=== PATIENT | female | born 1965 | race Caucasian/White ===

== ENCOUNTER → 2021-06-01 09:06 | Outpatient (CLI) | payer MEDICARE, MEDICAID, SELFPAY ==
[2021-06-01 09:33] VITALS: BP 98/57; PULSE 115; RESP 16; TEMP 37.2; O2SAT 99; BMI 22.4
[2021-06-01] MEDS: Acetaminophen 325 MG Tablet 650 MG PO (09:43)
[2021-06-01] MEDS: 0.9% NaCl VAD Flush IV ×2 (10:00→12:19)
[2021-06-01 10:30] VITALS: BP 87/52; PULSE 120; RESP 16; TEMP 37.2; O2SAT 99
[2021-06-01 11:30] VITALS: BP 105/67; PULSE 109; RESP 16; TEMP 36.9; O2SAT 100
[2021-06-01 12:17] VITALS: BP 99/66; PULSE 114; RESP 16; TEMP 36.7; O2SAT 99
== END ==
PROVIDERS: Referring Provider Internal Medicine Hematology & Oncology; Visit Provider Internal Medicine Hematology & Oncology
DX: D64.9 Anemia, unspecified (principal)
CPT/HCPCS: 36430; 86850; 86900; 86901; 86920; 86922; J7040; P9016; A4216

== ENCOUNTER 2021-07-07 15:50 | Observation (INO) | payer MEDICARE, MEDICAID, SELFPAY ==
[2021-07-07] VITALS (11 sets, daily range): BP systolic 82–101; BP diastolic 55–70; PULSE 83–136; RESP 18–28; TEMP 36.5–38.3; O2SAT 96; BMI 22.1; BMI 21.8
--- NOTE | 2021-07-07 16:41 | EDS_ITS ---
HPI History of Present Illness Chief Complaint: Fever Informant: patient Onset/Context/Timing Onset: Today Narrative Narrative: Patient presents with fever and not feeling well. She is currently on chemotherapy for history of colon cancer with liver mets. Her last chemotherapy treatment was 2 days ago. She states today she has just not felt well. She went up to the cancer center to have one of her medications discontinued and they told her she did not look well and they noted a temperature of 102. Patient denies cough or shortness of breath. No vomiting or diarrhea. She has not taken anything for fever today. [facility] Medical History Colon cancer Liver metastases Home Medications amoxicillin-pot clavulanate 1 tab PO BID 06/01/21 [History Last Taken Unknown] baclofen 5 mg PO TID 06/01/21 [History Last Taken Unknown] diclofenac sodium 75 mg PO BID 06/01/21 [History Last Taken Unknown] duloxetine 60 mg PO DAILY 06/01/21 [History Last Taken Unknown] fexofenadine-pseudoephedrine 1 tab PO DAILY PRN 06/01/21 [History Last Taken Unknown] gabapentin 300 mg PO TID 06/01/21 [History Last Taken Unknown] ibuprofen 600 mg PO Q6H PRN 06/01/21 [History Last Taken Unknown] loperamide 2 mg PO Q4H PRN 06/01/21 [History Last Taken Unknown] methocarbamol 750 mg PO TID 06/01/21 [History Last Taken Unknown] omeprazole 40 mg PO DAILY 06/01/21 [History Last Taken Unknown] oxycodone 5 - 10 mg PO Q8H PRN 06/01/21 [History Last Taken Unknown] promethazine 25 mg PO Q6H PRN 06/01/21 [History Last Taken Unknown] pyridoxine (vitamin B6) 100 mg PO DAILY 06/01/21 [History Last Taken Unknown] tramadol 50 mg PO Q6H PRN 06/01/21 [History Last Taken Unknown] Allergy/AdvReac Type Severity Reaction Status Date / Time No Known Allergies Allergy Verified 07/07/21 15:51 Social History Smoking Status: Unknown if ever smoked ROS ROS ED Constitutional Constitutional ED: Reports fever(s) Eyes Eyes: Denies blurry vision or change in vision ENT ENT ED: Denies rhinorrhea or sore throat Cardiovascular Cardiovascular: Denies chest pain or palpitations Respiratory/Chest Respiratory/Chest: Denies cough or dyspnea Gastrointestinal Gastrointestinal: Denies abdominal pain, diarrhea, nausea or vomiting Genitourinary Genitourinary ED: Denies dysuria Musculoskeletal Musculoskeletal: Reports myalgias Integumentary Denies rash Neurologic Neurologic: Reports weakness; Denies headache(s) Psychiatric Psychiatric: Denies anxiety or depression Allergic/Immunologic Allergic/Immunologic ED: Denies urticaria EXAM Physical Exam Const Vital Signs: 07/07/21 15:51 07/07/21 17:07 07/07/21 18:05 Temperature 100.7 F H 101 F H Temperature Source Temporal Temporal Pulse Rate 136 H 123 H 109 H Respiratory Rate 18 23 H 28 H Blood Pressure 82/55 L 101/68 89/62 L Blood Pressure Mean 64 79 71 Pulse Ox 96 96 Oxygen Delivery Method Room Air Room Air 07/07/21 18:18 07/07/21 18:19 Temperature 99.7 F H Temperature Source Temporal Pulse Rate 112 H Respiratory Rate 18 Blood Pressure 83/58 L 97/62 Blood Pressure Mean 66 73 Pulse Ox Oxygen Delivery Method Room Air Positive cachectic General Appearance ED: cachectic Nutritional Appearance: cachectic Eyes EOMs intact bilaterally Neck supple Chest Wall inspection of chest normal and palpation of chest normal Resp normal respiratory effort and clear to auscultation bilaterally Cardio Rate: tachycardic GI non-tender Palpation: soft Extremity Extremity Narrative: Port noted on the inner surface of the left upper arm. No surrounding erythema. Neuro oriented x3 Sensorium / Orientation: alert Psych mental status grossly normal Skin no rashes or lesions noted MDM MDM MDM Narrative Medical decision making narrative: Lab work, chest x-ray, cultures obtained. Patient given ibuprofen. Covid test ordered. Lab Data Attestation: I reviewed the patient's lab results. Labs: Laboratory Results - last 24 hr 07/07/21 07/07/21 07/07/21 16:15 16:15 16:15 WBC 13.0 H RBC 3.66 L Hgb 9.7 L Hct 32.2 L MCV 88.0 MCH 26.5 L MCHC 30.1 L RDW Std Deviation 60.2 H RDW Coeff of Dariusz 18.7 H Plt Count 452 H MPV 9.4 Immature Gran % (Auto) 0.800 Neut % (Auto) 90.3 H Lymph % (Auto) 8.3 L [place] % (Auto) 0.5 Eos % (Auto) 0.0 Baso % (Auto) 0.1 Absolute Neuts (auto) 11.8 H Absolute Lymphs (auto) 1.08 Nucleated RBC % 0 Atypical Lymphocytes 1+ Platelet Estimate SLT INC RBC Morphology N CHROM Hypochromasia 1+ Anisocytosis RARE Macrocytosis RARE PT 13.8 INR 1.1 APTT 28.1 Sodium 137 Potassium 3.4 L Chloride 97 L Carbon Dioxide 32.0 Anion Gap 8 BUN 7 Creatinine 0.72 Estim Creat Clear Calc 73.03 Est GFR (MDRD) Af Amer 108 Est GFR (MDRD) Non-Af 90 BUN/Creatinine Ratio 9.7 L Glucose 89 Lactic Acid Calcium 8.7 Total Bilirubin 0.50 Direct Bilirubin 0.14 AST 118 H ALT 23 Alkaline Phosphatase 285 H Total Protein 8.0 Albumin 1.9 L Globulin 6.1 H 07/07/21 16:15 WBC RBC Hgb Hct MCV MCH MCHC RDW Std Deviation RDW Coeff of Dariusz Plt Count MPV Immature Gran % (Auto) Neut % (Auto) Lymph % (Auto) [place] % (Auto) Eos % (Auto) Baso % (Auto) Absolute Neuts (auto) Absolute Lymphs (auto) Nucleated RBC % Atypical Lymphocytes Platelet Estimate RBC Morphology Hypochromasia Anisocytosis Macrocytosis PT INR APTT Sodium Potassium Chloride Carbon Dioxide Anion Gap BUN Creatinine Estim Creat Clear Calc Est GFR (MDRD) Af Amer Est GFR (MDRD) Non-Af BUN/Creatinine Ratio Glucose Lactic Acid 3.7 H* Calcium Total Bilirubin Direct Bilirubin AST ALT Alkaline Phosphatase Total Protein Albumin Globulin Rapid Covid: Positive Radiography Chest X-Ray - ED: 1 View, Read by ED Physician and Chronic Changes Diagnostic Testing: Clinical Impression(s) from Imaging Studies Chest X-Ray 07/07/21 17:08 IMPRESSION: 1. LEFT PIC catheter projects along the course the SVC approaching the venoatrial junction. 2. No pneumothorax. 3. Bibasilar patchy interstitial and alveolar infiltrate greater at the RIGHT base. 4. No congestive failure. Electronically Signed: Jason Dixon MD at 17:27 EST Tel , Service support , Treatment and Re-Evaluation Comments:: Patient's blood flasher initially low in the low 80s. She was initially given a 500 cc IV fluid bolus. Blood pressure remained low and lactic acid returned at 3.7. An additional 1 L IV fluid bolus is ordered. At this time her blood pressure is in the 90s over 60s. She states she typically runs in the 90s or 100s. Lab work does reveal a white count of 13.0. Chemistry studies largely unremarkable. Chest x-ray per radiology read does show bilateral infiltrates. With patient being on chemotherapy and early in her illness I do feel that she would benefit from Decadron and remdesivir. Decadron has been ordered here. I will speak with hospitalist regarding admission for further treatment. Discharge Plan Triage Chief Complaint: Fever Other Complaint: Fatigue ED Provider: Zahira Esteves Dx/Rx/DC Orders Clinical Impression: COVID-19, Hypotension Prescriptions: No Action loperamide 2 mg Tablet 2 mg PO Q4H PRN (Reason: bowels) RF: 0 tramadol 50 mg Tablet 50 mg PO Q6H PRN (Reason: Pain) RF: 0 methocarbamol 750 mg Tablet 750 mg PO TID RF: 0 promethazine 25 mg Tablet 25 mg PO Q6H PRN (Reason: Nausea) RF: 0 ibuprofen 200 mg Tablet 600 mg PO Q6H PRN (Reason: Pain) RF: 0 gabapentin 300 mg Capsule 300 mg PO TID RF: 0 omeprazole 20 mg Capsule,Delayed Release(Dr/Ec) 40 mg PO DAILY RF: 0 diclofenac sodium 75 mg Tablet,Delayed Release (Dr/Ec) 75 mg PO BID RF: 0 pyridoxine (vitamin B6) 100 mg Tablet 100 mg PO DAILY RF: 0 amoxicillin-pot clavulanate 875-125 mg Tablet 1 tab PO BID RF: 0 oxycodone 5 mg Tablet 5 - 10 mg PO Q8H PRN (Reason: Pain) RF: 0 duloxetine 60 mg Capsule,Delayed Release(Dr/Ec) 60 mg PO DAILY RF: 0 fexofenadine-pseudoephedrine 180-240 mg Tablet Extended Release 24 Hr 1 tab PO DAILY PRN (Reason: allergies) RF: 0 baclofen 5 mg Tablet 5 mg PO TID RF: 0 Primary Care Provider: Care Physician,No Primary Referrals: Care Physician,No Primary [Primary Care Provider] - Disposition Disposition: Acute Care Hospital [facility]
[2021-07-07] MEDS: Ibuprofen 200 MG Tablet 400 MG PO (16:49)
[2021-07-07 16:55] LABS: Absolute Lymphocyte Count 1.08 X10^3/uL (0.83-4.51); Absolute Neutrophil Count 11.8 X10^3/uL (2.0-7.7); Basophil# 0.01 X10^3/uL; Basophil% 0.1 % (0-1); Hematocrit 32.2 % (37-47); Hemoglobin 9.7 g/dL (12.0-15.0); Lymphocyte # 1.08 X10^3/ul (0.83-4.51); Lymphocyte % 8.3 % (19-41); Mean Corp Hgb Conc 30.1 g/dL (32-36); Mean Corpuscular Hgb 26.5 pg (27.0-32.0); Mean Platelet Vol. 9.4 fl (6.2-12.0); Monocyte# 0.07 X10^3/uL; Monocyte% 0.5 % (0-10); NRBC Flagged by Analyzer 0 % (0-5); Neutrophil # 11.76 X10^3/uL (2.7-7.7); Neutrophil % 90.3 % (47-70); POSITIVE MORPHOLOGY YES; Platelet Count 452 K/mm3 (150-450); RBC Distribution Width CV 18.7 % (11.6-14.6); RBC Distribution Width SD 60.2 fl (35.1-43.9); Red Blood Count 3.66 M/mm3 (4.2-5.4)
[2021-07-07 17:00] LABS: International Normalized Ratio 1.1; Partial Thromboplast Time 28.1 Seconds (24.1-36.2); Prothrombin Time (Protime)PT. 13.8 SECONDS (11.7-14.9)
--- NOTE | 2021-07-07 17:08 | RAD_ITS ---
INDICATION: fever EXAMINATION/TECHNIQUE: X-RAY - XR Chest 1 View COMPARISON: None. FINDINGS: LIFE-SUPPORT AND LINES: 1. LEFT PIC catheter projects in the region of the SVC approaching the venoatrial junction. 2. No pneumothorax. HEART AND VESSELS: The cardiac silhouette, pulmonary vasculature have normal appearance. No evidence of congestive failure. LUNGS AND PLEURAL SPACES: Patchy areas of infiltrate noted at the RIGHT mid and lower lung. Similar though less extensive changes at the LEFT base. No consolidation. No effusion. MEDIASTINUM AND HILAR REGIONS: No masses adenopathy noted. No areas of calcification. Visualized upper airway is normal in position. BONY ELEMENTS: No acute bony changes noted. RAD/Chest 1 View (Portable) IMPRESSION: 1. LEFT PIC catheter projects along the course the SVC approaching the venoatrial junction. 2. No pneumothorax. 3. Bibasilar patchy interstitial and alveolar infiltrate greater at the RIGHT base. 4. No congestive failure. Electronically Signed: Jason Dixon MD at 17:27 EST Tel , Service support ,
[2021-07-07 17:13] LABS: AST(SGOT) 118 U/L (15-37); Alanine Aminotransfer ALT/SGPT 23 U/L (13-56); Albumin, Serum 1.9 g/dL (3.2-5.0); Alkaline Phosphatase 285 U/L (45-117); Anion Gap 8 (5-15); BUN 7 mg/dL (7-18); BUN/Creat Ratio 9.7 RATIO (10-20); Bilirubin, Direct 0.14 mg/dL (0.00-0.30); Calcium,Total 8.7 mg/dL (8.5-10.1); Chloride 97 mmol/L (98-107); Creatinine, Serum 0.72 mg/dL (0.55-1.02); EST Glomerular Filtration Rate 90 mL/min (>60); Est Glom Filt Rate - Afr Amer 108 mL/min (>60); Estimated Creatinine Clearance 73.03 ml/min; Globulin 6.1 g/dL (2.2-4.2); Glucose 89 mg/dL (74-106); Lactic Acid 3.7 mmol/L (0.4-1.9); Potassium 3.4 mmol/L (3.5-5.1); Sodium Level 137 mmol/L (136-145)
[2021-07-07 17:20] LABS: Differential Indicated SCAN CRITERIA MET
[2021-07-07 17:31] LABS: Anisocytosis RARE; Atypical Lymphocyte 1+ %; Hypochromasia 1+; Macrocytosis RARE; Platelet Estimate SLT INC (ADEQ); Red Cell Morphology N CHROM NORMAL (NORM C&C)
[2021-07-07] MEDS: dexAMETHasone 4 MG/ML Vial 6 MG IV (18:19)
[2021-07-07] MEDS: 0.9% Normal Saline 1,000 ML 999 ML IV (18:19)
--- NOTE | 2021-07-07 19:46 | HP.PCM.HOS_ITS ---
HPI - General General Date of Admission: 07/07/21 HPI Narrative PHYLICIA ESPARZA, is a 56 F with a significant history of colon cancer status post colectomy and chemotherapy who presents to the emergency department with a fever. Patient last chemotherapy was 2 days ago. She went to the cancer center to have her chemotherapy pump disconnected. There they found that she was not looking good and also to she had a fever. She was seen today emergency department. Associated with symptoms is lethargy and productive cough with excessive phlegm. She denies shortness of breath except when she is coughing. She has myalgia. She denies dysgeusia or anosmia. She has anorexia. She has not been vaccinated for COVID-19 virus. At the emergent department her COVID-19 test was positive. PFSH Medical History Colon cancer Liver metastases Smoker Home Medications duloxetine 60 mg PO DAILY 06/01/21 [History Last Taken Unknown] gabapentin 300 mg PO TID 06/01/21 [History Last Taken 07/05/21] ibuprofen 600 mg PO Q6H PRN 06/01/21 [History Last Taken Unknown] methocarbamol 750 mg PO TID 06/01/21 [History Last Taken 07/06/21] omeprazole 40 mg PO DAILY 06/01/21 [History Last Taken 07/06/21] promethazine 25 mg PO Q6H PRN 06/01/21 [History Last Taken Unknown] pyridoxine (vitamin B6) 100 mg PO DAILY 06/01/21 [History Last Taken Unknown] tramadol 50 mg PO Q6H PRN 06/01/21 [History Last Taken Unknown] Allergy/AdvReac Type Severity Reaction Status Date / Time No Known Allergies Allergy Verified 07/07/21 15:51 Family History (Updated 07/07/21 @ 20:[address] Pb Vela MD) Other Colon cancer Diabetes Heart disease Surgical History H/O colectomy History of appendectomy Previous section Social History Smoking Status: Current every day smoker tobacco type: cigarettes ROS ROS Narrative Pertinent positives and pertinent negatives as noted in HPI. All other systems were reviewed and are negative. Vital Signs Vital Signs Vital Signs: 07/07/21 15:51 07/07/21 17:07 07/07/21 18:05 Temperature 100.7 F H 101 F H Temperature Source Temporal Temporal Pulse Rate 136 H 123 H 109 H Respiratory Rate 18 23 H 28 H Blood Pressure 82/55 L 101/68 89/62 L Blood Pressure Mean 64 79 71 Pulse Ox 96 96 Oxygen Delivery Method Room Air Room Air 07/07/21 18:18 07/07/21 18:19 07/07/21 19:07 Temperature 99.7 F H 98 F Temperature Source Temporal Temporal Pulse Rate 112 H 112 H Respiratory Rate 18 18 Blood Pressure 83/58 L 97/62 97/62 Blood Pressure Mean 66 73 73 Pulse Ox 96 Oxygen Delivery Method Room Air Room Air Weight Weight: 56.699 kg Body Mass Index (BMI) 22.1 Physical Exam Narrative Physical exam: General: Well-nourished, well-developed. Head: Normocephalic, atraumatic, no tenderness Eyes: PERRLA, EOMI ENT, no trauma, moist mucous membranes, no rhinorrhea Neck: Nontender, full range of motion, no spinal tenderness, deformities, step- off CVS: Regular rate and rhythm. S1-S2 present. No murmur, gallop or rub. Respiratory : clear to auscultation bilaterally, chest wall nontender, no wheezing Abdomen: Colostomy in place. Soft, nontender, nondistended, normal bowel sounds. : Deferred Back: Nontender, no CVA tenderness, no midline spinal tenderness, deformities, step-offs Extremities: Nontender full range of motion, no trauma Skin: Normal color, no trauma, abrasions Neuro: Alert, oriented, cranial nerves II through XII grossly intact. Psychiatry: Normal mood. Normal affect. Not depressed. Not anxious. Results Lab / Micro Data Result Diagrams: 07/08/21 06:30 07/08/21 06:30 Labs: Laboratory Results - last 24 hr 07/07/21 16:15: WBC 13.0 H, RBC 3.66 L, Hgb 9.7 L, Hct 32.2 L, MCV 88.0, MCH 26.5 L, MCHC 30.1 L, RDW Std Deviation 60.2 H, RDW Coeff of Dariusz 18.7 H, Plt Count 452 H, MPV 9.4, Immature Gran % (Auto) 0.800, Neut % (Auto) 90.3 H, Lymph % (Auto) 8.3 L, [place] % (Auto) 0.5, Eos % (Auto) 0.0, Baso % (Auto) 0.1, Absolute Neuts (auto) 11.8 H, Absolute Lymphs (auto) 1.08, Nucleated RBC % 0, Atypical Lymphocytes 1+, Platelet Estimate SLT INC, RBC Morphology N CHROM, Hypochromasia 1+, Anisocytosis RARE, Macrocytosis RARE 07/07/21 16:15: PT 13.8, INR 1.1, APTT 28.1 07/07/21 16:15: Sodium 137, Potassium 3.4 L, Chloride 97 L, Carbon Dioxide 32.0, Anion Gap 8, BUN 7, Creatinine 0.72, Estim Creat Clear Calc 73.03, Est GFR (MDRD) Af Amer 108, Est GFR (MDRD) Non-Af 90, BUN/Creatinine Ratio 9.7 L, Glucose 89, Calcium 8.7, Total Bilirubin 0.50, Direct Bilirubin 0.14, AST 118 H, ALT 23, Alkaline Phosphatase 285 H, Total Protein 8.0, Albumin 1.9 L, Globulin 6.1 H 07/07/21 16:15: Lactic Acid 3.7 H* Micro: Microbiology 07/07/21 17:23 Nasal Secretion SARS-CoV-2 Antigen (Rapid) - Final SARS-CoV-2 (COVID 19) Radiology Impression Chest X-Ray 07/07/21 17:08 IMPRESSION: 1. LEFT PIC catheter projects along the course the SVC approaching the venoatrial junction. 2. No pneumothorax. 3. Bibasilar patchy interstitial and alveolar infiltrate greater at the RIGHT base. 4. No congestive failure. Electronically Signed: Jason Dixon MD at 17:27 EST Tel , Service support , Assessment & Plan Assessment/Plan (1) COVID-19: PLAN: COVID-19 pneumonia Chest x-ray image was independently interpreted and I agree with radiologist interpretation above.. Rapid Covid antigen at the emergency department was positive. [facility] department labs reviewed showed normal white counts; but with neutrophilia and lymphopenia. Platelet count was normal. Hemoglobin was decreased (likely second to chemotherapy) Patient was not hypoxic at the emergency department. Because of headache counseled imaging department doctor wanted patient to stay at the hospital. Receive dexamethasone at the emergency department. Patient is not hypoxic. Emergency department recommended patient be admitted for possible dexamethasone and remdesivir since patient has a colon cancer. We will hold off further COVID-19 treatment and will consult infectious disease since patient is not hypoxic. Tylenol for fever Trend CBC and BMP. DVT prophylaxis Subcutaneous Lovenox ordered. Charges/Coding Visit Charges OBSV E&M: 30956 Initial observation care L2
[2021-07-07 20:53] LABS: Reflex Lactate? Y
--- NOTE | 2021-07-07 21:36 | PCS.PANDOC ---
PANDEMIC DOCUMENTATION INITIATED: Date: 03/14/2021 Time: 190
[2021-07-07] MEDS: guaiFENesin 600 MG Tablet PO (22:10)
[2021-07-07] MEDS: Enoxaparin 30 MG/0.3 ML Syringe SC (22:10)
[2021-07-07 22:23] LABS: Lactic Acid 1.5 mmol/L (0.4-1.9)
[2021-07-07 23:00] LABS: Procalcitonin 2.68 ng/mL (0.00-0.09)
[2021-07-08 03:00] VITALS: PULSE 62
[2021-07-08 04:32] VITALS: BP 99/73; PULSE 73; RESP 18; TEMP 36.3; O2SAT 97
[2021-07-08 07:00] VITALS: PULSE 60
[2021-07-08 07:16] LABS: Absolute Lymphocyte Count 0.75 X10^3/uL (0.83-4.51); Hemoglobin 8.7 g/dL (12.0-15.0); Lymphocyte # 0.75 X10^3/ul (0.83-4.51); Lymphocyte % 10.9 % (19-41); Mean Corpuscular Hgb 26.5 pg (27.0-32.0); Mean Corpuscular Volume 88.4 fL (81-99); Mean Platelet Vol. 9.2 fl (6.2-12.0); Monocyte# 0.05 X10^3/uL; Monocyte% 0.7 % (0-10); NRBC Flagged by Analyzer 0 % (0-5); Neutrophil # 6.03 X10^3/uL (2.7-7.7); Neutrophil % 87.8 % (47-70); POSITIVE MORPHOLOGY YES; Platelet Count 349 K/mm3 (150-450); RBC Distribution Width SD 60.7 fl (35.1-43.9); Red Blood Count 3.28 M/mm3 (4.2-5.4); White Blood Count 6.9 K/mm3 (4.4-11.0)
[2021-07-08 07:26] LABS: Differential Indicated SCAN CRITERIA MET
[2021-07-08 07:46] LABS: ALB/GLOB Ratio 0.3 RATIO (0.9-2.4); AST(SGOT) 85 U/L (15-37); Alanine Aminotransfer ALT/SGPT 18 U/L (13-56); Albumin, Serum 1.6 g/dL (3.2-5.0); Alkaline Phosphatase 220 U/L (45-117); Anion Gap 5 (5-15); BUN 8 mg/dL (7-18); BUN/Creat Ratio 18.5 RATIO (10-20); Calcium,Total 8.1 mg/dL (8.5-10.1); Chloride 105 mmol/L (98-107); Creatinine, Serum 0.43 mg/dL (0.55-1.02); EST Glomerular Filtration Rate 161 mL/min (>60); Est Glom Filt Rate - Afr Amer 194 mL/min (>60); Estimated Creatinine Clearance 122.28 ml/min; Globulin 5.1 g/dL (2.2-4.2); Glucose 133 mg/dL (74-106); Potassium 3.6 mmol/L (3.5-5.1); Protein, Total 6.7 g/dL (6.4-8.2); Sodium Level 141 mmol/L (136-145)
[2021-07-08 07:57] LABS: Anisocytosis 1+
[2021-07-08] MEDS: Enoxaparin 30 MG/0.3 ML Syringe SC (09:05)
[2021-07-08] MEDS: guaiFENesin 600 MG Tablet PO (09:06)
[2021-07-08 09:10] VITALS: BP 99/77; PULSE 85; RESP 16; TEMP 36.4; O2SAT 100
--- NOTE | 2021-07-08 10:03 | PCM.DC ---
Discharge Instructions Diet Discharge Diet: No restrictions Activity Additional Activity Instructions:: Self isolate for at least 10 days since symptoms began 07/06-07/15/2021 AND at least one day (24 hours) have passed since resolution of fever without the use of fever-reducing agents AND improvement of symptoms (e.g., cough, shortness of breath) When around people in the same room, wear a face mask. Individuals also in the room should wear a mask. If possible, use a different bathroom and bedroom. Perform adequate hand hygiene. Avoid sharing dishes, glasses, etc. Follow Up Care Test Results: Test results from this visit will be discussed in further detail at your follow-up appointment, if applicable. Discharge Plan Admission Admit Date/Time: 07/07/21 19:40 Primary Reason for Your Visit: Hypotension Attending Provider: Julian Sanderson Primary Care Provider: Care Physician,No Primary Consulting Providers: Lew Castro Discharge Orders/Prescriptions Prescriptions: Continued tramadol 50 mg Tablet 50 mg PO Q6H PRN (Reason: Pain) RF: 0 methocarbamol 750 mg Tablet 750 mg PO TID RF: 0 promethazine 25 mg Tablet 25 mg PO Q6H PRN (Reason: Nausea) RF: 0 ibuprofen 200 mg Tablet 600 mg PO Q6H PRN (Reason: Pain) RF: 0 gabapentin 300 mg Capsule 300 mg PO TID RF: 0 omeprazole 20 mg Capsule,Delayed Release(Dr/Ec) 40 mg PO DAILY RF: 0 pyridoxine (vitamin B6) 100 mg Tablet 100 mg PO DAILY RF: 0 duloxetine 60 mg Capsule,Delayed Release(Dr/Ec) 60 mg PO DAILY RF: 0 Referrals / Follow Up: David Langford MD [STAFF PHYSICIAN] - Within 2 Weeks Care Physician,No Primary [Primary Care Provider] - Disposition Disposition (needs filled in before D/C Order can be placed): Home, Self Care
--- NOTE | 2021-07-08 10:06 | DS.PCM_ITS ---
Providers Date of Admission: 07/07/21 Primary Care Physician: Carmen Primary Care Phys Consultations 07/07/21 21:06 Consult: Infectious Disease Routine Consulting Provider: Lew Castro Reason for Consult: Covid-19 EMERGENT Consult: No MD Notified: Yes Date Notified: 07/08/21 Time Notified: 07:21 Method of Notification: Answering Service Reason For Visit: COVID PNEUMONIA Diagnosis Discharge Diagnosis (1) COVID-19: Status: Acute Code(s): U07.1 - COVID-19 Medications at Discharge Home Medications duloxetine 60 mg PO DAILY 06/01/21 gabapentin 300 mg PO TID 06/01/21 ibuprofen 600 mg PO Q6H PRN 06/01/21 methocarbamol 750 mg PO TID 06/01/21 omeprazole 40 mg PO DAILY 06/01/21 promethazine 25 mg PO Q6H PRN 06/01/21 pyridoxine (vitamin B6) 100 mg PO DAILY 06/01/21 tramadol 50 mg PO Q6H PRN 06/01/21 Hospital Course Operations None Procedures None Summary of Care Provided Minutes Spent on Discharge: 28 Hospital Course: 36-year-old female presents with fever. Patient has been feeling ill for 2 days to 2 weeks prior. Patient is unvaccinated for COVID-19. Patient was positive COVID-19 but she was hypotensive. She did receive IV fluids and responded nicely. From COVID-19 standpoint, patient is doing well and is on room air. She has received dexamethasone in the emergency room. No n eed for additional treatment for COVID-19. Patient can be discharged home can follow-up with her oncologist, Dr. Langford. Patient states that she was not vaccinated due to her own decision. Physical Exam Const alert and no apparent distress HEENT normocephalic and head/scalp atraumatic Resp normal respiratory effort, no retractions, no use of accessory muscles and clear to auscultation bilaterally Cardio regular rate, regular rhythm, S1 normal heart sound and S2 normal heart sound GI normal to inspection, nondistended, normoactive bowel sounds, soft to palpation, non-tender and non-distended Extremity normal to inspection, full ROM and no clubbing, cyanosis or edema Skin no rashes or lesions noted Weight / BMI Weight Weight: 55.9 kg Body Mass Index (BMI) 21.8 ABG / Lab / Microbiology Data Result Diagrams: 07/08/21 06:30 07/08/21 06:30 Laboratory: Laboratory Results - last 24 hr 07/07/21 16:15: WBC 13.0 H, RBC 3.66 L, Hgb 9.7 L, Hct 32.2 L, MCV 88.0, MCH 26.5 L, MCHC 30.1 L, RDW Std Deviation 60.2 H, RDW Coeff of Dariusz 18.7 H, Plt Count 452 H, MPV 9.4, Immature Gran % (Auto) 0.800, Neut % (Auto) 90.3 H, Lymph % (Auto) 8.3 L, [place] % (Auto) 0.5, Eos % (Auto) 0.0, Baso % (Auto) 0.1, Absolute Neuts (auto) 11.8 H, Absolute Lymphs (auto) 1.08, Nucleated RBC % 0, Atypical Lymphocytes 1+, Platelet Estimate SLT INC, RBC Morphology N CHROM, Hypochromasia 1+, Anisocytosis RARE, Macrocytosis RARE 07/07/21 16:15: PT 13.8, INR 1.1, APTT 28.1 07/07/21 16:15: Sodium 137, Potassium 3.4 L, Chloride 97 L, Carbon Dioxide 32.0, Anion Gap 8, BUN 7, Creatinine 0.72, Estim Creat Clear Calc 73.03, Est GFR (MDRD) Af Amer 108, Est GFR (MDRD) Non-Af 90, BUN/Creatinine Ratio 9.7 L, Glucose 89, Calcium 8.7, Total Bilirubin 0.50, Direct Bilirubin 0.14, AST 118 H, ALT 23, Alkaline Phosphatase 285 H, Total Protein 8.0, Albumin 1.9 L, Globulin 6.1 H 07/07/21 16:15: Lactic Acid 3.7 H* 07/07/21 16:15: Procalcitonin 2.68 H 07/07/21 21:50: Lactic Acid 1.5 07/08/21 06:30: WBC 6.9, RBC 3.28 L, Hgb 8.7 L, Hct 29.0 L, MCV 88.4, MCH 26.5 L , MCHC 30.0 L, RDW Std Deviation 60.7 H, RDW Coeff of Dariusz 19.0 H, Plt Count 349, MPV 9.2, Immature Gran % (Auto) 0.600, Neut % (Auto) 87.8 H, Lymph % (Auto) 10.9 L, [place] % (Auto) 0.7, Eos % (Auto) 0.0, Baso % (Auto) 0.0, Absolute Neuts (auto) 6.0, Absolute Lymphs (auto) 0.75 L, Nucleated RBC % 0, Anisocytosis 1+ 07/08/21 06:30: Sodium 141, Potassium 3.6, Chloride 105, Carbon Dioxide 31.0, Anion Gap 5, BUN 8, Creatinine 0.43 L, Estim Creat Clear Calc 122.28, Est GFR (MDRD) Af Amer 194, Est GFR (MDRD) Non-Af 161, BUN/Creatinine Ratio 18.5, Glucose 133 H, Calcium 8.1 L, Total Bilirubin 0.40, AST 85 H, ALT 18, Alkaline Phosphatase 220 H, Total Protein 6.7, Albumin 1.6 L, Globulin 5.1 H, Albumin/Globulin Ratio 0.3 L Microbiology: Microbiology 07/07/21 17:23 Nasal Secretion SARS-CoV-2 Antigen (Rapid) - Final SARS-CoV-2 (COVID 19) Radiography Diagnostic Testing: Radiology Impression Chest X-Ray 07/07/21 17:08 IMPRESSION: 1. LEFT PIC catheter projects along the course the SVC approaching the venoatrial junction. 2. No pneumothorax. 3. Bibasilar patchy interstitial and alveolar infiltrate greater at the RIGHT base. 4. No congestive failure. Electronically Signed: Jason Dixon MD at 17:27 EST Tel , Service support , D/C Instructions Discharge Diet: No restrictions Additional Activity Instructions: Self isolate for at least 10 days since symptoms began 07/06-07/15/2021 AND at least one day (24 hours) have passed since resolution of fever without the use of fever-reducing agents AND improvement of symptoms (e.g., cough, shortness of breath) When around people in the same room, wear a face mask. Individuals also in the room should wear a mask. If possible, use a different bathroom and bedroom. Perform adequate hand hygiene. Avoid sharing dishes, glasses, etc. Meaningful Use Info Meaningful Use Diagnoses (Choose all that apply): None applicable Discharge Plan Admission Admit Date/Time: 07/07/21 19:40 Primary Reason for Your Visit: Hypotension Attending Provider: Julian Sanderson Primary Care Provider: Care Physician,No Primary Consulting Providers: Lew Castro Discharge Orders/Prescriptions Prescriptions: Continued tramadol 50 mg Tablet 50 mg PO Q6H PRN (Reason: Pain) RF: 0 methocarbamol 750 mg Tablet 750 mg PO TID RF: 0 promethazine 25 mg Tablet 25 mg PO Q6H PRN (Reason: Nausea) RF: 0 ibuprofen 200 mg Tablet 600 mg PO Q6H PRN (Reason: Pain) RF: 0 gabapentin 300 mg Capsule 300 mg PO TID RF: 0 omeprazole 20 mg Capsule,Delayed Release(Dr/Ec) 40 mg PO DAILY RF: 0 pyridoxine (vitamin B6) 100 mg Tablet 100 mg PO DAILY RF: 0 duloxetine 60 mg Capsule,Delayed Release(Dr/Ec) 60 mg PO DAILY RF: 0 Referrals / Follow Up: David Langford MD [STAFF PHYSICIAN] - Within 2 Weeks Care Physician,No Primary [Primary Care Provider] - Disposition Disposition (needs filled in before D/C Order can be placed): Home, Self Care Charges/Coding Visit Charges OBSV E&M: 65029 Observation care discharge
--- NOTE | 2021-07-08 10:34 | CASEMGMT ---
WALDEMAR HAWKINS assessment: Initial transition planning/care coordination assessment. WALDEMAR HAWKINS introduced self and role at [facility], pt voices understanding and consents to assessment. Pt speaks in full sentences on room air. Pt is A/Ox4 and answers questions appropriately. Pt states is not vaccinated and tested COVID + here. Pt states family is fine and states no concerns getting resources once home. Care providers, pharmacy, and demographics verified. Presentation: Pt c/o fever/fatigue, recent chemo for colon cancer Admitting dx: COVID pna PCP: Evie Specialists: azar Langford Preferred Pharmacy: [facility] Insurance: [employer] A/B, [employer] Prescription Benefit: [employer] A/B, [employer] Living Will/HPOA: Pt does have HPOA and is aware that it's not on file at [facility]. Pt's daughter, Gilda Westfall, is HPOA. LNOK: Gilda Westfall, daughter Living Arrangements: Pt lives with 16 yo daughter in home and states no concerns at home. Pt states is independent with ADL's. Transportation: Pt drives self and states no transportation concerns. DME/HHC: Pt states no current DME or need for DME. Pt states no hx of HHC or SNF. Pt states no concerns with going home at discharge. Pt states is unemployed. Pt states smokes 1/2pack cigarettes daily but does not drink ETOH. Pt states no further concerns/needs. CM to to follow for home oxygen need and any further discharge planning/needs. Advised pt to ask for CM if any further questions/concerns/needs arise, voices understanding. Pt Goal: Home Plan[place] WALDEMAR HAWKINS
[2021-07-08 10:55] VITALS: O2SAT 97; O2SAT 99
--- NOTE | 2021-07-08 11:01 | PHA.DC.MR ---
Pharmacy Service has performed discharge medication reconciliation for this patient. The patient's discharge medication list was reviewed for discrepancies and discrepancies were resolved. Home Medications duloxetine 60 mg PO DAILY 06/01/21 gabapentin 300 mg PO TID 06/01/21 ibuprofen 600 mg PO Q6H PRN 06/01/21 methocarbamol 750 mg PO TID 06/01/21 omeprazole 40 mg PO DAILY 06/01/21 promethazine 25 mg PO Q6H PRN 06/01/21 pyridoxine (vitamin B6) 100 mg PO DAILY 06/01/21 tramadol 50 mg PO Q6H PRN 06/01/21
--- NOTE | 2021-07-08 11:14 | CASEMGMT ---
Pt does not qualify for home oxygen at discharge. Pt encouraged to get pulse ox of home. Pt voices no further questions/concerns/needs. Celia MEDEIROS CM
--- NOTE | 2021-07-08 13:30 | PCM.CONS.GEN ---
Assessment & Plan Assessment/Plan (1) COVID-19: PLAN: Covid sx started 07/07. On chemo. Unvaccinated, not interested in getting it, has no reason why. Encouraged her to get vaccine in the future. At this time, not hypoxic. Recommended isolation for 10-14 days, family members should be quarantined and get tested. Reviewed options for monoclonal Abs, and she is interested. Put in order and will see if she get receive prior to leaving hospital. Will follow as needed, thank you, d/w nursing and primary team. HPI Consult Data Date of Consult: 07/08/21 HPI Narrative HPI Narrative: PHYLICIA ESPARZA, is a 56 F with colon cancer, on chemo, developed fever, some cough yesterday. Found to have fever, covid (+), admitted overnight. No hypoxia, discharging home today. No sick contacts, unvaccinated. Full ROS performed and neg except as noted above. PFSH Medical History Colon cancer Liver metastases Smoker Home Medications duloxetine 60 mg PO DAILY 06/01/21 [History Last Taken Unknown] gabapentin 300 mg PO TID 06/01/21 [History Last Taken 07/05/21] ibuprofen 600 mg PO Q6H PRN 06/01/21 [History Last Taken Unknown] methocarbamol 750 mg PO TID 06/01/21 [History Last Taken 07/06/21] omeprazole 40 mg PO DAILY 06/01/21 [History Last Taken 07/06/21] promethazine 25 mg PO Q6H PRN 06/01/21 [History Last Taken Unknown] pyridoxine (vitamin B6) 100 mg PO DAILY 06/01/21 [History Last Taken Unknown] tramadol 50 mg PO Q6H PRN 06/01/21 [History Last Taken Unknown] Allergy/AdvReac Type Severity Reaction Status Date / Time No Known Allergies Allergy Verified 07/07/21 15:51 Family History (Updated 07/07/21 @ 20:[address] Pb Vela MD) Other Colon cancer Diabetes Heart disease Surgical History H/O colectomy History of appendectomy Previous section Social History Smoking Status: Current every day smoker tobacco type: cigarettes Physical Exam Const alert, oriented x3 and no apparent distress General Appearance: cooperative Exam Limitations: no limitations HEENT normocephalic and head/scalp atraumatic Eyes PERRL and EOMs intact bilaterally Neck supple and No nodes Resp normal air movement and clear to auscultation bilaterally Cardio regular rate and regular rhythm GI normal to inspection, nondistended, normoactive bowel sounds Extremity no clubbing, cyanosis or edema Skin no rashes or lesions noted Neuro CN's II-XII intact bilaterally Lab / Micro Data Result Diagrams: 07/08/21 06:30 07/08/21 06:30 Labs: Laboratory Results - last 24 hr 07/07/21 16:15: WBC 13.0 H, RBC 3.66 L, Hgb 9.7 L, Hct 32.2 L, MCV 88.0, MCH 26.5 L, MCHC 30.1 L, RDW Std Deviation 60.2 H, RDW Coeff of Dariusz 18.7 H, Plt Count 452 H, MPV 9.4, Immature Gran % (Auto) 0.800, Neut % (Auto) 90.3 H, Lymph % (Auto) 8.3 L, Vilas % (Auto) 0.5, Eos % (Auto) 0.0, Baso % (Auto) 0.1, Absolute Neuts (auto) 11.8 H, Absolute Lymphs (auto) 1.08, Nucleated RBC % 0, Atypical Lymphocytes 1+, Platelet Estimate SLT INC, RBC Morphology N CHROM, Hypochromasia 1+, Anisocytosis RARE, Macrocytosis RARE 07/07/21 16:15: PT 13.8, INR 1.1, APTT 28.1 07/07/21 16:15: Sodium 137, Potassium 3.4 L, Chloride 97 L, Carbon Dioxide 32.0, Anion Gap 8, BUN 7, Creatinine 0.72, Estim Creat Clear Calc 73.03, Est GFR (MDRD) Af Amer 108, Est GFR (MDRD) Non-Af 90, BUN/Creatinine Ratio 9.7 L, Glucose 89, Calcium 8.7, Total Bilirubin 0.50, Direct Bilirubin 0.14, AST 118 H, ALT 23, Alkaline Phosphatase 285 H, Total Protein 8.0, Albumin 1.9 L, Globulin 6.1 H 07/07/21 16:15: Lactic Acid 3.7 H* 07/07/21 16:15: Procalcitonin 2.68 H 07/07/21 21:50: Lactic Acid 1.5 07/08/21 06:30: WBC 6.9, RBC 3.28 L, Hgb 8.7 L, Hct 29.0 L, MCV 88.4, MCH 26.5 L, MCHC 30.0 L, RDW Std Deviation 60.7 H, RDW Coeff of Dariusz 19.0 H, Plt Count 349, MPV 9.2, Immature Gran % (Auto) 0.600, Neut % (Auto) 87.8 H, Lymph % (Auto) 10.9 L, Vilas % (Auto) 0.7, Eos % (Auto) 0.0, Baso % (Auto) 0.0, Absolute Neuts (auto) 6.0, Absolute Lymphs (auto) 0.75 L, Nucleated RBC % 0, Anisocytosis 1+ 07/08/21 06:30: Sodium 141, Potassium 3.6, Chloride 105, Carbon Dioxide 31.0, Anion Gap 5, BUN 8, Creatinine 0.43 L, Estim Creat Clear Calc 122.28, Est GFR (MDRD) Af Amer 194, Est GFR (MDRD) Non-Af 161, BUN/Creatinine Ratio 18.5, Glucose 133 H, Calcium 8.1 L, Total Bilirubin 0.40, AST 85 H, ALT 18, Alkaline Phosphatase 220 H, Total Protein 6.7, Albumin 1.6 L, Globulin 5.1 H, Albumin/Globulin Ratio 0.3 L Micro: Microbiology 07/07/21 17:23 Nasal Secretion SARS-CoV-2 Antigen (Rapid) - Final SARS-CoV-2 (COVID 19) Radiology Impression Chest X-Ray 07/07/21 17:08 IMPRESSION: 1. LEFT PIC catheter projects along the course the SVC approaching the venoatrial junction. 2. No pneumothorax. 3. Bibasilar patchy interstitial and alveolar infiltrate greater at the RIGHT base. 4. No congestive failure. Electronically Signed: Jason Dixon MD at 17:27 EST Tel , Service support ,
== END 2021-07-08 10:06 | disposition home or self-care (01) ==
LOC: ED 19:14 → PCU 07-08 07:06
PROVIDERS: Admitting Provider Hospitalist; Emergency Provider Emergency Medicine
DX: U07.1 COVID-19 (principal); J12.82 Pneumonia due to coronavirus disease 2019; I95.9 Hypotension, unspecified; C18.9 Malignant neoplasm of colon, unspecified; C78.7 Secondary malignant neoplasm of liver and intrahepatic bile duct; F17.210 Nicotine dependence, cigarettes, uncomplicated; Z79.899 Other long term (current) drug therapy; Z28.3 Underimmunization status
CPT/HCPCS: 36415; 71045; 80048; 80053; 80076; 83605; 84145; 85025; 85610; 85730; 87040; 87426; 96361; 96372; 96374; 99218; 99285; 99406; J7030; J7040; A4216; G0378

== ENCOUNTER 2021-07-12 12:21 | Outpatient (CLI) | payer MEDICARE, MEDICAID, SELFPAY ==
[2021-07-12 12:35] VITALS: BP 86/61; PULSE 119; RESP 18; TEMP 37.4; O2SAT 93; BMI 21.4
[2021-07-12] MEDS: 0.9% Saline Lock 10 ML Syringe IV (12:41)
[2021-07-12 13:03] VITALS: BP 81/53; PULSE 109; RESP 18; TEMP 37.9; O2SAT 94
[2021-07-12 14:03] VITALS: BP 83/57; PULSE 110; RESP 18; TEMP 39.1; O2SAT 92
== END 2021-07-12 14:08 | disposition home or self-care (01) ==
LOC: MS3OUT 12:21 → MS3 12:22
PROVIDERS: Referring Provider Nurse Practitioner Adult Health; Visit Provider Nurse Practitioner Adult Health
DX: U07.1 COVID-19 (principal)
CPT/HCPCS: J7050; M0243; A4216; Q0244